=== PATIENT | female | born 1955 | race Caucasian/White ===

== ENCOUNTER 2017-05-20 17:38 | Emergency (ER) | payer OTHER ==
--- NOTE | 2017-05-20 17:46 | PDOC ---
History of Present Illness - History of Present Illness Initial Comments: 05/20/17 18:06 The patient is a 61F, with PMHx of hypothyroidism, right sided facial numbness , who presents with 5 days of cold symptoms. Patient states that she has been experiencing a sore throat, cough, runny nose for the past 5 days. She states that she has been taking Tylenol and jason seltzer. Social Hx: works at a daycare. <Helena Costello - Last Filed: 05/20/17 18:06> <Dejon Conrad - Last Filed: 05/22/17 09:51> - General Chief Complaint: Cold Symptoms Stated Complaint: COLD SYMPTOMS Time Seen by Provider: 05/20/17 17:45 Past History <Helena Costello - Last Filed: 05/20/17 18:06> <Dejon oCnrad - Last Filed: 05/22/17 09:51> - Past Medical History Allergies/Adverse Reactions: Allergies Allergy/AdvReac Type Severity Reaction Status Date / Time No Known Allergies Allergy Verified 05/20/17 17:39 Home Medications: Ambulatory Orders Albuterol Sulfate Inhaler - [Ventolin HFA Inhaler -] 1 - 2 inh PO Q4H #1 inhaler 05/20/17 Amoxicillin/Potassium Clav [Augmentin 875-125 Tablet] 1 each PO BID #14 tablet 05/20/17 Levothyroxine [Synthroid -] 88 mcg PO DAILY 05/20/17 Review of Systems - Review of Systems Comments:: 05/20/17 18:06 Constitutional: no fever ENT: +sore throat, +rhinnorhea Cardiovascular: no palpitations; no chest pain Pulmonary: +cough; no trouble breathing Gastrointestinal: No nausea; no vomiting; no diarrhea Genitourinary: No urinary problems; no hematuria Skin: No rash Lymph system: No swollen glands Musculoskeletal: No joint swelling Neurological: No weakness; No numbness; No headache; no vertigo; no lightheadedness Psychiatric:No anxiety; no depression <Helena Costello - Last Filed: 05/20/17 18:06> *Physical Exam - Vital Signs Last Vital Signs Temp Pulse Resp BP Pulse Ox 98 F 71 20 133/87 99 05/20/17 17:39 05/20/17 17:39 05/20/17 17:39 05/20/17 17:39 05/20/17 17:39 - Physical Exam Comments: 05/20/17 18:08 Vitals: Triage Vital signs reviewed General Appearance: no acute distress, well nourished well developed Head: Atraumatic Eyes: Pupils equal reactive round, extraocular movement intact Ears: TMs normal bilaterally Nose: Nares patent bilaterally; no nasal congestion Throat: Posterior oropharynx with erythema, mucous membranes moist Neck: Supple; No Nuchal rigidity Chest Wall: Nontender Cardiac: Regular rate and rhythm, no murmurs, no rubs, no gallops Lungs: Clear to auscultation bilateral, good air movement bilaterally Abdomen: Soft, non distended, normal bowel sounds, non tender to palpation Extremities: Full range of motion to all extremities, no cyanosis, clubbing, or edema Skin: Warm and dry, no rashes or lesions, no rash, no petechiae Neuro: AOX3; Cranial Nerves 2-12 grossly intact, Strength intact to all extremities, Sensation intact to all extremities, gait normal Psych: Normal mood, normal affect <Helena Costello - Last Filed: 05/20/17 18:06> Medical Decision Making - Medical Decision Making 05/20/17 18:40 No apparent distress history and examination consistent with upper respiratory infection and cough low suspicion for bacterial sinusitis however if symptoms are not improving provided the patient with a prescription for Augmentin at her request Findings, the need for follow-up and strict return instructions discussed with patient. 05/22/17 09:50 <Dejon Conrad - Last Filed: 05/22/17 09:51> *DC/Admit/Observation/Transfer - Attestations Scribe Attestion: 05/20/17 18:09 Documentation prepared by Helena Costello, acting as director of medical education for Dejon Conrad MD. <Helena Costello - Last Filed: 05/20/17 18:06> - Discharge Dispostion Admit: No <Dejon Conrad - Last Filed: 05/22/17 09:51> Diagnosis at time of Disposition: URI (upper respiratory infection) Qualifiers: URI type: unspecified URI Qualified Code(s): J06.9 - Acute upper respiratory infection, unspecified - Discharge Dispostion Disposition: HOME Condition at time of disposition: Improved - Prescriptions Prescriptions: Albuterol Sulfate Inhaler - [Ventolin HFA Inhaler -] 1 - 2 inh PO Q4H #1 inhaler Amoxicillin/Potassium Clav [Augmentin 875-125 Tablet] 1 each PO BID #14 tablet - Patient Instructions Printed Discharge Instructions: DI for Viral Upper Respiratory Infection -- Adult Additional Instructions: Nebulizer albuterol MDI as prescribed. Take [id number] Motrin as needed for pain. If no improvement in symptoms okay to take Augmentin 7 days. Follow- up with your doctor in 1-2 days. Return to the ED for any severe worsening symptoms or for any concerns.
[2017-05-20 17:47] VITALS: BP 133/87; PULSE 71; TEMP 98; BMI 28.1
[2017-05-20] MEDS ORDERED: ALBUTEROL SO4 2.5/IPRATROPIUM 0.5 INH SOL 3 ML VIAL.NEB. NEB ONE ×2 (17:53→18:15)
[2017-05-20] MEDS ORDERED: IBUPROFEN 400 MG TABLET (FP) PO ONE ×2 (17:54→18:16)
== END 2017-05-20 18:59 | disposition home or self-care (01) ==
LOC: FER 17:38
PROC: 3E0F7GC Introduction of Other Therapeutic Substance into Respiratory Tract, Via Natural or Artificial Opening (ICD-10-PCS; principal; 2017-05-20)
DX: J06.9 Acute upper respiratory infection, unspecified (principal)
CPT/HCPCS: 87070; 87430; 94640; 99282-25